=== PATIENT | male | born 1980 | race Caucasian/White ===

== ENCOUNTER → 2017-01-11 | Outpatient (CLI) | payer BC ==
--- NOTE | 2017-01-11 12:11 | RAD ---
ABDOMEN SUPINE UPRIGHT Clinical Indication: EPIGASTRIC ABDOMINAL PAIN, NAUSEA, AND DIARRHEA X 1WK Comparison: None. Findings: No free air. No dilated, air-filled loops of bowel. Moderate colonic stool. No abnormal calcifications. No acute osseous abnormality. IMPRESSION: Nonobstructive bowel gas pattern. Moderate colonic stool.
== END | disposition home or self-care (01) ==
LOC: DXRADRC 09:40
PROVIDERS: ATTEND Physician Assistant
DX: R10.13 Epigastric pain (principal); R11.0 Nausea; R19.7 Diarrhea, unspecified
CPT/HCPCS: 74020